=== PATIENT | female | born 1960 | race Caucasian/White ===

== ENCOUNTER 2024-07-27 06:43 | Day surgery (SDC) | payer MEDICAID ==
[~2024-07-27] VITALS: Ht 165.1 cm; Wt 110.3 kg
[2024-07-27] MEDS ORDERED: ARIP10TA38 PO (07:44)
[2024-07-27] MEDS ORDERED: INSU100I26 SQ (07:44)
[2024-07-27] MEDS ORDERED: AMLO-258 PO (07:44)
[2024-07-27] MEDS ORDERED: INSU100V36 SQ (07:44)
[2024-07-27] MEDS ORDERED: FEXO-353 PO (07:44)
[2024-07-27] MEDS ORDERED: CAND16TA PO (07:44)
[2024-07-27] MEDS ORDERED: ROSU20TA98 PO (08:00)
[2024-07-27] MEDS ORDERED: DULO-113 PO (08:00)
[2024-07-27] MEDS ORDERED: FLUT16SP NASAL (08:00)
[2024-07-27] MEDS ORDERED: IPRA30SP2 NASAL (08:00)
[2024-07-27] MEDS ORDERED: NEBI5TAB12 PO ×2 (08:00→08:12)
[2024-07-27] MEDS ORDERED: LEVAHFA IH (08:00)
[2024-07-27] MEDS ORDERED: BUDE10.7 IH (08:00)
[2024-07-27] MEDS ORDERED: GABA-1201 PO (08:00)
[2024-07-27] MEDS ORDERED: MIDAZOLAM HCL 2 MG/2 ML VIAL ONE (08:05)
[2024-07-27] MEDS ORDERED: FentaNYL CITRATE PF 100 MCG/2 ML VIAL ONE (08:05)
[2024-07-27] MEDS ORDERED: METF-1211 PO (08:12)
[2024-07-27] MEDS ORDERED: LAMO-24 PO (08:12)
[2024-07-27] MEDS ORDERED: SUCR1TAB2 PO (08:12)
[2024-07-27] MEDS ORDERED: BINI15TA PO (08:12)
[2024-07-27] MEDS ORDERED: ENCO75CA PO (08:12)
[2024-07-27] MEDS ORDERED: TOPI100T37 PO (08:12)
[2024-07-27] MEDS ORDERED: ARIP15TA27 PO (08:12)
[2024-07-27] MEDS ORDERED: PANT-31 PO (08:12)
[2024-07-27] MEDS ORDERED: OMAL300A SQ (08:15)
[2024-07-27 08:21] LABS: GLUCOMETER DEV NAME(LOC) SDS.; GLUCOSE,POINT OF CARE 94 MG/DL (70-110)
[2024-07-27] MEDS: SODIUM CHLORIDE 0.9% 1,000 ML IV ONE (08:44)
[2024-07-27 09:00] VITALS: PULSE 68; RESP 14; O2SAT 98
[2024-07-27] MEDS ORDERED: MethylPREDNISolone SOD SUCC 125 MG/2 ML VIAL ONE (09:36)
[2024-07-27] MEDS: MethylPREDNISolone SOD SUCC 125 MG/2 ML VIAL IVP ONE (10:06)
[2024-07-27] MEDS ORDERED: LIDOCAINE 2% 11 ML JELLY ONE (12:00)
[2024-07-27] MEDS ORDERED: ALBUTEROL SULFATE 2.5 MG/0.5 ML NEB SOLUTION NEB ONE (12:00)
[2024-07-27] MEDS ORDERED: LIDOCAINE 4% 50 ML SOLUTION ONE (12:00)
[2024-07-27] MEDS ORDERED: BENZOCAINE 20% 50 MCG/SPRAY 57 GM ONE (12:00)
== END 2024-07-27 11:30 | disposition home or self-care (01) ==
LOC: SURGERY 06:43
PROVIDERS: ATTEND Internal Medicine Critical Care Medicine
DX: R05.3 Chronic cough (principal); R49.0 Dysphonia; R04.2 Hemoptysis; J38.4 Edema of larynx; B37.0 Candidal stomatitis; I10 Essential (primary) hypertension; E11.9 Type 2 diabetes mellitus without complications; E78.00 Pure hypercholesterolemia, unspecified; J45.909 Unspecified asthma, uncomplicated; M19.90 Unspecified osteoarthritis, unspecified site; Z85.828 Personal history of other malignant neoplasm of skin; Z90.710 Acquired absence of both cervix and uterus; Z90.721 Acquired absence of ovaries, unilateral; Z96.641 Presence of right artificial hip joint; Z96.659 Presence of unspecified artificial knee joint; Z98.890 Other specified postprocedural states; Z88.2 Allergy status to sulfonamides; Z88.6 Allergy status to analgesic agent; Z88.8 Allergy status to other drugs, medicaments and biological substances
CPT/HCPCS: 31623; 82962; 87206; 87101; 87220; 87070; 88108; 31624; 94640; 71045; 87015; J3010; J2250; J2919; J7613; Z7610